=== PATIENT | male | born 1985 | race African-American/Black ===

== ENCOUNTER 2019-02-08 21:26 | Emergency (ER) | payer OTHER ==
[~2019-02-08] VITALS: Ht 170.2 cm; Wt 65.8 kg
[2019-02-09 00:15] LABS: BASO % 0 % (0-3); EOS % 0 % (0-3); HEMATOCRIT 40.9 % (39.0-53.0); HEMOGLOBIN 13.6 g/dL (13.0-17.5); LYMPH % 8 % (24-48); MEAN CORPUSCULAR HEMOGLOBIN 31 pg (25-35); MEAN CORPUSCULAR HGB CONC 33 g/dL (31-37); MEAN CORPUSCULAR VOLUME 92 fL (79-100); MONO % 8 % (0-9); NEUT # 10.6 x10^3uL (1.8-7.7); NEUT % 83 % (31-73); PLATELET COUNT 302 x10^3/uL (140-400); RED BLOOD COUNT 4.45 x10^6/uL (4.30-5.70); RED CELL DISTRIBUTION WIDTH 13.9 % (11.5-14.5); WHITE BLOOD COUNT 12.7 x10^3/uL (4.0-11.0)
[2019-02-09] MEDS ORDERED: cefTRIAXone IM 250 MG VIAL IM ONE (00:15)
[2019-02-09] MEDS ORDERED: AZITHROMYCIN 250 MG TABLET. PO ONE (00:15)
[2019-02-09] MEDS ORDERED: IV NORMAL SALINE 1000ML BAG 1,000 ML IV ONE (00:15)
[2019-02-09] MEDS ORDERED: KETOROLAC 15 MG/ML VIAL. IV ONE (00:15)
[2019-02-09 00:18] LABS: BILIRUBIN,URINE NEGATIVE (NEG); CLARITY,URINE CLEAR; COLOR,URINE YELLOW; NITRITE,URINE NEGATIVE (NEG); PROTEIN,URINE NEGATIVE (NEG-TRACE); UROBILINOGEN,URINE 0.2 mg/dL (0.2 mg/dL)
[2019-02-09 00:23] LABS: CALCIUM 9.1 mg/dL (8.5-10.1); CREATININE 0.9 mg/dL (0.7-1.3); GFR 118.3; POTASSIUM 3.2 mmol/L (3.5-5.1)
[2019-02-09 00:27] LABS: BACTERIA,URINE 0 /HPF (0-FEW); RBC,URINE OCC /HPF (0-2); SQUAMOUS EPITHELIAL CELL,UR OCC /LPF; WBC,URINE TNTC /HPF (0-4)
[2019-02-09 00:33] LABS: ALBUMIN 3.9 g/dL (3.4-5.0); MAGNESIUM 1.6 mg/dL (1.8-2.4); TOTAL BILIRUBIN 0.3 mg/dL (0.2-1.0)
[2019-02-09] MEDS ORDERED: IOHEXOL 300 MG/ML 100ML VIAL. IV ONE (00:45)
[2019-02-09] MEDS ORDERED: IOHEXOL 240 MG/ML 50ML VIAL. PO ONE (00:45)
[2019-02-09] MEDS ORDERED: CONTRAST GIVEN. MC PRN (00:45)
--- NOTE | 2019-02-09 00:48 | PHYS DOC ---
Past Medical History Past Medical History: No Pertinent History Past Surgical History: No Surgical History Alcohol Use: Occasionally Drug Use: Marijuana Adult General Chief Complaint Chief Complaint: ABDOMINAL PAIN HPI HPI Patient is a 33 year old male who presents with right groin pain for one week. He describes the groin pain as a throbbing sensation. The pain radiates down into his right testicle. He also has tenderness of his right testicle with palpation. Movement makes his grown and testicular pain worse. Nothing has improved his pain. Patient also reports some penile discharge one week ago. He denies any dysuria or hematuria. Review of Systems Review of Systems Constitutional: Denies fever or chills [] Eyes: Denies redness or eye pain [] HENT: Denies nasal congestion or sore throat [] Respiratory: Denies cough or shortness of breath [] Cardiovascular: Denies chest pain or palpitations GI: Reports right groin pain. Denies nausea, vomiting [] : Reports penile discharge. Denies dysuria or hematuria [] Musculoskeletal: Denies back pain or joint pain [] Integument: Denies rash or skin lesions [] Neurologic: Denies headache or focal weakness [] Complete systems were reviewed and found to be within normal limits, except as documented in this note. Current Medications Current Medications Current Medications Medications (Trade) Dose Ordered Sig/Brayan Start Time Stop Time Status Last Admin Dose Admin Azithromycin (Zithromax) 1,000 mg 1X ONCE 02/09/19 00:15 02/09/19 00:18 DC 02/09/19 00:58 1,000 MG Ceftriaxone Sodium (Rocephin Im) 250 mg 1X ONCE 02/09/19 00:15 02/09/19 00:18 DC 02/09/19 00:59 250 MG Ceftriaxone Sodium (Rocephin) 1 gm 1X ONCE 02/09/19 01:30 02/09/19 01:37 DC Info (CONTRAST GIVEN -- Rx MONITORING) 1 each PRN DAILY PRN 02/09/19 00:45 02/11/19 00:44 Iohexol (Omnipaque 240 Mg/ml) 30 ml 1X ONCE 02/09/19 00:45 02/09/19 00:46 DC Iohexol (Omnipaque 300 Mg/ml) 75 ml 1X ONCE 02/09/19 00:45 02/09/19 00:46 DC 02/09/19 01:48 75 ML Ketorolac Tromethamine (Toradol 15mg Vial) 15 mg 1X ONCE 02/09/19 00:15 02/09/19 00:18 DC 02/09/19 00:58 15 MG Sodium Chloride 1,000 ml @ 1,000 mls/hr 1X ONCE 02/09/19 00:15 02/09/19 01:14 DC 02/09/19 00:57 1,000 MLS/HR Allergies Allergies Allergies Coded Allergies Type Severity Reaction Last Updated Verified No Known Drug Allergies 02/08/19 No Physical Exam Physical Exam Constitutional: Well developed, well nourished, no acute distress [] HENT: Normocephalic, atraumatic [] Eyes: EOMI, no discharge. [] Neck: Normal range of motion, supple [] Cardiovascular:Heart rate regular rhythm, no murmur [] Lungs & Thorax: Bilateral breath sounds clear to auscultation [] Abdomen: Bowel sounds normal, soft, . [] : Right groin tender to palpation, right testicle tender to movement, no penile discharge Skin: Warm, dry, no erythema Back: No tenderness, no CVA tenderness. [] Extremities: ROM intact, no edema. [] Neurologic: Alert and oriented X 3, no focal deficits noted. [] Psychologic: Affect normal, mood normal. [] Current Patient Data Vital Signs Vital Signs Date Time Temp Pulse Resp B/P (MAP) Pulse Ox O2 Delivery O2 Flow Rate FiO2 02/09/19 01:00 69 115/69 (84) 99 02/08/19 22:12 98.8 16 Room Air 98.8 Lab Values Laboratory Tests Test 02/09/19 00:01 White Blood Count 12.7 x10^3/uL (4.0-11.0) H Red Blood Count 4.45 x10^6/uL (4.30-5.70) Hemoglobin 13.6 g/dL (13.0-17.5) Hematocrit 40.9 % (39.0-53.0) Mean Corpuscular Volume 92 fL (79-100) Mean Corpuscular Hemoglobin 31 pg (25-35) Mean Corpuscular Hemoglobin Concent 33 g/dL (31-37) Red Cell Distribution Width 13.9 % (11.5-14.5) Platelet Count 302 x10^3/uL (140-400) Neutrophils (%) (Auto) 83 % (31-73) H Lymphocytes (%) (Auto) 8 % (24-48) L Monocytes (%) (Auto) 8 % (0-9) Eosinophils (%) (Auto) 0 % (0-3) Basophils (%) (Auto) 0 % (0-3) Neutrophils # (Auto) 10.6 x10^3uL (1.8-7.7) H Lymphocytes # (Auto) 1.0 x10^3/uL (1.0-4.8) Monocytes # (Auto) 1.0 x10^3/uL (0.0-1.1) Eosinophils # (Auto) 0.0 x10^3/uL (0.0-0.7) Basophils # (Auto) 0.0 x10^3/uL (0.0-0.2) Urine Collection Type Unknown Urine Color Yellow Urine Clarity Clear Urine pH 6.0 Urine Specific [place] 1.025 Urine Protein Negative mg/dL (NEG-TRACE) Urine Glucose (UA) Negative mg/dL (NEG) Urine Ketones (Stick) Negative mg/dL (NEG) Urine Blood Small (NEG) Urine Nitrite Negative (NEG) Urine Bilirubin Negative (NEG) Urine Urobilinogen Dipstick 0.2 mg/dL (0.2 mg/dL) Urine Leukocyte Esterase Large (NEG) Urine RBC Occ /HPF (0-2) Urine WBC Tntc /HPF (0-4) Urine Squamous Epithelial Cells Occ /LPF Urine Bacteria 0 /HPF (0-FEW) Urine Mucus Mod /LPF Sodium Level 141 mmol/L (136-145) Potassium Level 3.2 mmol/L (3.5-5.1) L Chloride Level 100 mmol/L (98-107) Carbon Dioxide Level 29 mmol/L (21-32) Anion Gap 12 (6-14) Blood Urea Nitrogen 10 mg/dL (8-26) Creatinine 0.9 mg/dL (0.7-1.3) Estimated GFR (Cockcroft-Gault) 118.3 BUN/Creatinine Ratio 11 (6-20) Glucose Level 90 mg/dL (70-99) Calcium Level 9.1 mg/dL (8.5-10.1) Magnesium Level 1.6 mg/dL (1.8-2.4) L Total Bilirubin 0.3 mg/dL (0.2-1.0) Aspartate Amino Transferase (AST) 16 U/L (15-37) Alanine Aminotransferase (ALT) 24 U/L (16-63) Alkaline Phosphatase 59 U/L (46-116) Total Protein 8.0 g/dL (6.4-8.2) Albumin 3.9 g/dL (3.4-5.0) Albumin/Globulin Ratio 1.0 (1.0-1.7) Lipase 43 U/L (73-393) L Laboratory Tests 02/09/19 00:01 Laboratory Tests 02/09/19 00:01 EKG EKG [] Radiology/Procedures Radiology/Procedures PROCEDURE: TESTICULAR/SCROTUM Testicular ultrasound TECHNIQUE: Grayscale and duplex Doppler sonography were utilized. HISTORY: Right testicular pain and right lower quadrant pain. FINDINGS: Right testicle measures 4.1 x 3.0 x 3.2 cm. Left testicle measures 3.5 x 3.2 x 2.2 cm. The right epididymis is markedly enlarged and hypervascular. There is a 5 mm avascular hypoechoic pocket cyst or solid nodule the right epididymis. There is a moderate hydrocele. The right testicle is also hypervascular. No edema or hypervascularity of the left testicle. There may be mild hypervascularity of the tail of the left epididymis indicating epididymitis. No testicular mass. There is intact testicular blood flow without evidence of torsion. No left hydrocele. At the right groin with Valsalva there is mild motion, small mobile inguinal hernia of fatty tissue is possible. IMPRESSION: 1. Right epididymoorchitis with marked enlargement of the epididymis and hypervascularity of the epididymis and testicle. Mild right hydrocele. 2. Mild left epididymitis. 3. No testicular mass or torsion evident. 4. Mild motion of fatty tissue at the right groin with Valsalva may indicate a small hernia. Electronically signed by: Diego Kamara MD (02/09/2019 1:14 AM) [id number] Course & Med Decision Making Course & Med Decision Making Visual members and emergency department due to right groin and scrotal pain. Having penile discharge 1 week ago. He denies any fevers or chills. Labs and imaging obtained and posted to chart. Patient was reflexively treated for STD. Ultrasound demonstrated epididymoorchitis with marked enlargement of the epididymis and hypervascularity of the epididymis and testicle. Symptomatic treatment provided with interval improvement. Patient stable for discharge with outpatient follow-up with PCP. Discussed findings and plan with patient and family, who acknowledge understanding and agreement. Desean Disclaimer Dragon Disclaimer This electronic medical record was generated, in whole or in part, using a voice recognition dictation system. Departure Departure Impression: Primary Impression: Orchitis and epididymitis Additional Impression: Colitis Disposition: 01 HOME, SELF-CARE Condition: STABLE Referrals: NO PCP (PCP) Patient Instructions: Colitis, Epididymitis, Orchitis Scripts Metronidazole (FLAGYL) 500 Mg Tablet 500 MG PO TID, #30 TAB Prov: KWAKU TURNER DO 02/09/19 Levofloxacin (LEVAQUIN) 500 Mg Tablet 1 TAB PO DAILY, #10 TAB Prov: KWAKU TURNER DO 02/09/19 Oxycodone/Apap 5-325 (PERCOCET 5-325 MG TABLET ) 1 Each Tablet 0.5-1 TAB PO PRN Q6HRS PRN for PAIN, #10 TAB 0 Refills Prov: KWAKU TURNER DO 02/09/19 Problem Qualifiers KWAKU TURNER DO Feb 09, 2019 00:48
--- NOTE | 2019-02-09 01:17 | RAD ---
Testicular ultrasound TECHNIQUE: Grayscale and duplex Doppler sonography were utilized. HISTORY: Right testicular pain and right lower quadrant pain. FINDINGS: Right testicle measures 4.1 x 3.0 x 3.2 cm. Left testicle measures 3.5 x 3.2 x 2.2 cm. The right epididymis is markedly enlarged and hypervascular. There is a 5 mm avascular hypoechoic pocket cyst or solid nodule the right epididymis. There is a moderate hydrocele. The right testicle is also hypervascular. No edema or hypervascularity of the left testicle. There may be mild hypervascularity of the tail of the left epididymis indicating epididymitis. No testicular mass. There is intact testicular blood flow without evidence of torsion. No left hydrocele. At the right groin with Valsalva there is mild motion, small mobile inguinal hernia of fatty tissue is possible. IMPRESSION: 1. Right epididymoorchitis with marked enlargement of the epididymis and hypervascularity of the epididymis and testicle. Mild right hydrocele. 2. Mild left epididymitis. 3. No testicular mass or torsion evident. 4. Mild motion of fatty tissue at the right groin with Valsalva may indicate a small hernia. Electronically signed by: Diego Kamara MD (02/09/2019 1:14 AM) [id number]
[2019-02-09] MEDS ORDERED: cefTRIAXone IV Push 1 GM VIAL. IVP ONE (01:30)
--- NOTE | 2019-02-09 02:27 | RAD ---
CT abdomen and pelvis with contrast PQRS statement: CT scans at this facility use dose reduction including either automated exposure control, iterative reconstructions, and /or weight based radiation dosing via mA and kV modification when appropriate to reduce radiation dose to as low as reasonably achievable. HISTORY: Right lower quadrant abdominal pain. TECHNIQUE: 75 mL Omnipaque [address] imaging of the abdomen and pelvis was acquired. Abdomen findings: Nonspecific subcentimeter hypoattenuating lesion left hepatic lobe. Kidneys, adrenals, spleen, pancreas and gallbladder are unremarkable. Appendix is negative. There is wall thickening of the descending and rectosigmoid colon likely changes of colitis. No abdominal fluid or adenopathy. Lung bases and bones are unremarkable. Pelvis findings: Rectosigmoid colonic wall thickening. Bladder, prostate and bones are unremarkable. No pelvic fluid or adenopathy. IMPRESSION: 1. Left-sided colitis. 2. The appendix is negative. Electronically signed by: Diego Kamara MD (02/09/2019 2:24 AM) [id number]
[2019-02-09 02:30] VITALS: BP 133/77
[2019-02-09] MEDS ORDERED: OXYC1TAB15 PO (02:50)
[2019-02-09] MEDS ORDERED: LEVO500T59 PO (02:50)
[2019-02-09] MEDS ORDERED: METR500T PO (02:50)
== END 2019-02-09 02:54 | disposition home or self-care (01) ==
LOC: ER 21:26
DX: N45.3 Epididymo-orchitis (principal); K52.9 Noninfective gastroenteritis and colitis, unspecified
CPT/HCPCS: 36415; 74177; 76870; 80053; 81001; 83690; 83735; 85025; 87086; 87491; 87591; 96361; 96372; 96374; 99285; J0696; J1885; J7030; Q0144; Q9967